=== PATIENT | female | born 1960 | race Caucasian/White ===

== ENCOUNTER 2016-03-02 17:04 | Emergency (ER) | payer MEDICARE, MEDICAID ==
[2016-03-02] MEDS ORDERED: AMOX 875 MG/CLAV 125 MG 1 EACH TABLET ONE (20:06)
[2016-03-02] MEDS ORDERED: ALBUTEROL NEB 2.5 MG/3 ML VIAL.NEB NEB ONE ×2 (20:07→20:10)
--- NOTE | 2016-03-03 09:04 | RAD ---
Exam: Portable chest COMPARISON: 09/27/2015, 06/02/2015, 05/14/2013 INDICATION: Difficulty breathing, cough, nausea and vomiting. FINDINGS: 2 semierect AP portable views of the chest were obtained. Cardiomegaly is similar. Mild retrocardiac density is noted. Lung timmons are otherwise symmetric. No definite pleural effusion. Bones of the chest wall are intact. IMPRESSION: Chronic cardiomegaly. Mild retrocardiac density. Whether this reflects pneumonia or simply atelectasis is uncertain.
== END 2016-03-02 20:31 | disposition home or self-care (01) ==
LOC: ED 17:04
DX: J20.9 Acute bronchitis, unspecified (principal)
CPT/HCPCS: 71010; 94640; 99284; 99283; A9270